=== PATIENT | female | born 1940 | race Caucasian/White ===

== ENCOUNTER → 2021-06-03 | Outpatient (CLI) | payer MEDICARE ==
[2021-06-03 08:54] LABS: HEMATOCRIT 45.6 % (37.0-47.0); MEAN CELL VOLUME 85.4 fl (81.0-99.0); MEAN CORPUSCULAR HGB 29.6 pg (27.0-31.0); MEAN CORPUSCULAR HGB CONC 34.6 g/dl (33.0-37.0); RED BLOOD COUNT 5.34 10*6/uL (4.10-5.10); RED CELL DISTRI WIDTH 12.4 % (0-14.5); WHITE BLOOD COUNT 4.4 10*3/uL (4.8-10.8)
[2021-06-03 09:12] LABS: ALBUMIN 3.8 gm/dl (3.1-4.5); CREATININE 1.1 mg/dL (0.55-1.02); POTASSIUM 3.7 mmol/L (3.5-5.1); TOTAL PROTEIN 7.7 gm/dL (6.4-8.2)
[2021-06-03 09:17] LABS: FREE T4 1.16 ng/dl (0.76-1.46); THYROID STIM HORMONE (HS) 5.7 uIU/ml (0.358-4.75)
[2021-06-03 11:11] LABS: VITAMIN D, 25-HYDROXY 29.2 ng/mL (30-100)
== END | disposition home or self-care (01) ==
LOC: LAB 08:16
PROVIDERS: ATTEND Family Medicine
DX: I10 Essential (primary) hypertension (principal); E03.9 Hypothyroidism, unspecified; E55.9 Vitamin D deficiency, unspecified; R53.83 Other fatigue; M25.551 Pain in right hip; E78.00 Pure hypercholesterolemia, unspecified

== ENCOUNTER → 2021-06-13 | Outpatient (CLI) | payer MEDICARE | END | disposition home or self-care (01) | LOC: LAB 07:35 | PROVIDERS: ATTEND Family Medicine | DX: E78.00 Pure hypercholesterolemia, unspecified (principal); Z79.899 Other long term (current) drug therapy ==

== ENCOUNTER → 2022-04-28 | Outpatient (CLI) | payer MEDICARE | END | disposition home or self-care (01) | LOC: LAB 11:52 | PROVIDERS: ATTEND Chiropractor | DX: M51.36 Other intervertebral disc degeneration, lumbar region (principal); M48.061 Spinal stenosis, lumbar region without neurogenic claudication; M47.816 Spondylosis without myelopathy or radiculopathy, lumbar region; M43.16 Spondylolisthesis, lumbar region ==

== ENCOUNTER 2022-06-13 10:29 | Emergency (ER) | payer MEDICARE ==
[~2022-06-13] VITALS: Ht 170.1 cm; Wt 91.6 kg
[2022-06-13] MEDS ORDERED: Percocet 325 MG1 TAB PO (13:11)
[2022-06-13] MEDS ORDERED: PREDNISONE20 M1 PO (13:11)
== END 2022-06-13 13:27 | disposition home or self-care (01) ==
LOC: ED 10:29
DX: M54.16 Radiculopathy, lumbar region (principal)

== ENCOUNTER → 2024-01-27 | Emergency (ER) | payer MEDICARE ==
[~2024-01-27] VITALS: Ht 167.6 cm; Wt 94.3 kg
[~2024-01-27] MED LIST: METHOCARBAMOL 500 MG TAB PO ONE; METHOCARBAMOL500 M1 PO; PREDNISONE20 M1 PO; PREDNISONE50 MG PO; Percocet 325 MG1 TAB PO; methylPREDNISolone sod succ 125 MG VIAL IM ONE
== END ==
LOC: ED 14:33
DX: M54.41 Lumbago with sciatica, right side (principal); M25.551 Pain in right hip; I10 Essential (primary) hypertension; E11.9 Type 2 diabetes mellitus without complications; Z96.651 Presence of right artificial knee joint

== ENCOUNTER 2024-09-21 13:34 | Emergency (ER) | payer MEDICARE ==
[~2024-09-21] VITALS: Ht 167.6 cm; Wt 91.2 kg
[~2024-09-21 13:34] MED LIST changes: -METHOCARBAMOL 500 MG TAB PO ONE; -methylPREDNISolone sod succ 125 MG VIAL IM ONE
[2024-09-21] MEDS ORDERED: GLIPIZIDE10 M1 PO (13:52)
[2024-09-21] MEDS ORDERED: DULOXETINE HCL30 MG PO (13:53)
[2024-09-21] MEDS ORDERED: CELECOXIB100 M1 PO (13:53)
[2024-09-21] MEDS ORDERED: JARDIANCE25 MG PO (13:54)
[2024-09-21] MEDS ORDERED: ARMOUR THYROID60 MG PO (13:54)
[2024-09-21] MEDS ORDERED: LOSARTAN POTAS100 M1 PO (13:54)
[2024-09-21] MEDS ORDERED: ROSUVASTATIN CA20 MG PO (13:54)
[2024-09-21 14:14] LABS: BASO % 0.9 % (0.0-1.0); EOS # 0.1 10*3/uL (0.0-0.4); EOS % 2.6 % (1.0-4.0); HEMATOCRIT 50.8 % (37.0-47.0); MEAN CELL VOLUME 86.2 fl (81.0-99.0); MEAN CORPUSCULAR HGB 28.9 pg (27.0-31.0); MEAN CORPUSCULAR HGB CONC 33.5 g/dl (33.0-37.0); MEAN PLATELET VOLUME 9.4 fl (9.6-12.3); MONO # 0.4 10*3/uL (0.1-1.0); MONO % 7.8 % (3.0-9.0); NEUT # 3.1 10*3/uL (2.3-7.9); NEUT % 66.3 % (47.0-73.0); PLATELET COUNT AUTOMATED 200 10*3/uL (130-400); RED BLOOD COUNT 5.89 10*6/uL (4.10-5.10); RED CELL DISTRI WIDTH 13.1 % (0-14.5); WHITE BLOOD COUNT 4.6 10*3/uL (4.8-10.8)
[2024-09-21 14:39] LABS: BILIRUBIN Negative (Negative); BLOOD Negative (Negative); CLARITY Clear (Clear); COLOR Yellow (Yellow); GLUCOSE 3+ (Negative); KETONE Negative (Negative); LEUKO ESTERASE 1+ (Negative); NITRITE Negative (Negative); SPECIFIC GRAVITY >= 1.030 (1.001-1.030); UROBILINOGEN 0.2 E.U./dl (0.0-1.0)
[2024-09-21 14:39] LABS: POTASSIUM 3.9 mmol/L (3.4-5.1); TOTAL PROTEIN 7.6 gm/dL (6.0-8.0)
[2024-09-21] MEDS ORDERED: hydrALAZINE hydrochloride 20 MG/ML VIAL IV ONE (14:45)
[2024-09-21 14:57] LABS: BACTERIA 1+; WBC 31-40 wbc/hpf (0-5)
[2024-09-21] MEDS ORDERED: MACROBID100 M1 PO (15:53)
== END 2024-09-21 16:24 | disposition home or self-care (01) ==
LOC: ED 13:34
PROVIDERS: Physician Assistant Medical
DX: I16.0 Hypertensive urgency (principal); N39.0 Urinary tract infection, site not specified; R91.1 Solitary pulmonary nodule; R97.8 Other abnormal tumor markers; R42 Dizziness and giddiness; E11.40 Type 2 diabetes mellitus with diabetic neuropathy, unspecified; E78.5 Hyperlipidemia, unspecified; E03.9 Hypothyroidism, unspecified; Z79.84 Long term (current) use of oral hypoglycemic drugs; Z79.899 Other long term (current) drug therapy

== ENCOUNTER 2024-10-15 10:29 | Emergency (ER) | payer MEDICARE ==
[~2024-10-15] VITALS: Wt 99.3 kg
[~2024-10-15 10:29] MED LIST changes: +ARMOUR THYROID60 MG PO; +CELECOXIB100 M1 PO; +DULOXETINE HCL30 MG PO; +GLIPIZIDE10 M1 PO; +JARDIANCE25 MG PO; +LOSARTAN POTAS100 M1 PO; +MACROBID100 M1 PO; +ROSUVASTATIN CA20 MG PO
[2024-10-15] MEDS ORDERED: Ondansetron Hydrochloride 4 MG/2 ML VIAL IV ONE (11:00)
[2024-10-15] MEDS ORDERED: IOHEXOL 300 MG/ML 100 ML VIAL IV ONE (11:00)
[2024-10-15] MEDS ORDERED: SODIUM CHLORIDE 0.9% 1,000 ML IV ONE (11:00)
[2024-10-15 11:12] LABS: BASO % 0.9 % (0.0-1.0); EOS # 0.1 10*3/uL (0.0-0.4); EOS % 2.6 % (1.0-4.0); MEAN CELL VOLUME 86.4 fl (81.0-99.0); MEAN CORPUSCULAR HGB 28.7 pg (27.0-31.0); MEAN CORPUSCULAR HGB CONC 33.2 g/dl (33.0-37.0); MEAN PLATELET VOLUME 9.4 fl (9.6-12.3); MONO # 0.4 10*3/uL (0.1-1.0); MONO % 9.6 % (3.0-9.0); NEUT # 2.8 10*3/uL (2.3-7.9); NEUT % 60.8 % (47.0-73.0); PLATELET COUNT AUTOMATED 184 10*3/uL (130-400); RED BLOOD COUNT 5.09 10*6/uL (4.10-5.10); RED CELL DISTRI WIDTH 12.7 % (0-14.5); WHITE BLOOD COUNT 4.6 10*3/uL (4.8-10.8)
[2024-10-15 11:36] LABS: ALKALINE PHOSPHATASE 89 U/L (46-116); BUN 16 mg/dl (9-23); CHLORIDE 105 mmol/L (98-107); LIPASE 59 U/L (12-53); POTASSIUM 3.6 mmol/L (3.4-5.1); SGPT/ALT 31 U/L (5-49); TOTAL PROTEIN 6.4 gm/dL (6.0-8.0)
[2024-10-15 11:43] LABS: BILIRUBIN Negative (Negative); BLOOD Negative (Negative); CLARITY Clear (Clear); COLOR Yellow (Yellow); GLUCOSE Negative (Negative); KETONE Negative (Negative); LEUKO ESTERASE Trace (Negative); NITRITE Negative (Negative); PH 7.5 (4.5-8.0); UROBILINOGEN 0.2 E.U./dl (0.0-1.0)
[2024-10-15 11:57] LABS: EPITHELIAL CELLS 0-2
[2024-10-15 11:58] LABS: BACTERIA TRACE; RBC 0-2 rbc/hpf (0-2)
[2024-10-15] MEDS ORDERED: MORPHINE Sulfate 2 MG/ML SYR IV ONE (13:35)
== END 2024-10-15 14:23 | disposition home or self-care (01) ==
LOC: ED 10:29
PROVIDERS: Internal Medicine
DX: R10.31 Right lower quadrant pain (principal); I10 Essential (primary) hypertension; E11.9 Type 2 diabetes mellitus without complications; Z79.899 Other long term (current) drug therapy